=== PATIENT | female | born 1980 | race American Indian/Alaskan Native ===

== ENCOUNTER 2016-07-01 22:27 | Emergency (ER) | payer OTHER ==
--- NOTE | 2016-07-02 02:58 | Emergency Department Report ---
- General Chief complaint: Skin/Abscess/Foreign Body Stated complaint: ABSCESS Time Seen by Provider: 07/02/16 02:42 Source: patient, family Mode of arrival: Ambulatory Limitations: No Limitations - History of Present Illness Initial comments: Patient here reports that she noticed that she has skin abscess under her left arm after shaving. She reports pain 8 out of 10 with movement. Reports swelling and redness. Denies any fever or chills. MD complaint: abscess/boil Onset/Timin -: days(s) Tetanus Up to Date: yes Location: LUE (left axilla) Severity: severe Severity scale (0 -10): 8 Quality: aching, other (throbbing) Consistency: intermittent Improves with: immobilization, rest Worsens with: palpation, movement Associated symptoms: denies other symptoms Treatments Prior to Arrival: other (warm compresses) - Related Data Previous Rx's Medication Instructions Recorded Last Taken Type Ibuprofen [Motrin] 800 mg PO Q8H PRN #20 tablet 12/26/13 Unknown Rx traMADol [Ultram] 50 mg PO Q6HR PRN #10 tablet 12/26/13 Unknown Rx Acetaminophen/Codeine [Tylenol 1 tab PO Q6H PRN #12 tab 07/02/16 Unknown Rx /Codeine # 3 tab] Ibuprofen [Motrin] 600 mg PO Q8H PRN #15 tablet 07/02/16 Unknown Rx Sulfamethoxazole/Trimethoprim 1 each PO BID #20 tablet 07/02/16 Unknown Rx [Bactrim DS TAB] Allergies Allergy/AdvReac Type Severity Reaction Status Date / Time No Known Allergies Allergy Unverified 06/10/13 12:50 Abscess Boil HPI - HPI Chief Complaint: Skin/Abscess/Foreign Body Stated Complaint: ABSCESS Time Seen by Provider: 07/02/16 02:42 Home Medications: Previous Rx's Medication Instructions Recorded Last Taken Type Ibuprofen [Motrin] 800 mg PO Q8H PRN #20 tablet 12/26/13 Unknown Rx traMADol [Ultram] 50 mg PO Q6HR PRN #10 tablet 12/26/13 Unknown Rx Acetaminophen/Codeine [Tylenol 1 tab PO Q6H PRN #12 tab 07/02/16 Unknown Rx /Codeine # 3 tab] Ibuprofen [Motrin] 600 mg PO Q8H PRN #15 tablet 07/02/16 Unknown Rx Sulfamethoxazole/Trimethoprim 1 each PO BID #20 tablet 07/02/16 Unknown Rx [Bactrim DS TAB] Allergies/Adverse Reactions: Allergies Allergy/AdvReac Type Severity Reaction Status Date / Time No Known Allergies Allergy Unverified 06/10/13 12:50 ED Review of Systems ROS: Stated complaint: ABSCESS Other details as noted in HPI Comment: All other systems reviewed and negative Constitutional: denies: chills, fever ENT: denies: throat pain Respiratory: no symptoms reported Cardiovascular: denies: chest pain, palpitations, edema, syncope Gastrointestinal: denies: abdominal pain, nausea, vomiting Skin: other (abscess left axilla). denies: rash Neurological: denies: headache, weakness, numbness, paresthesias, confusion, abnormal gait, vertigo ED Past Medical Hx - Past Medical History Previous Medical History?: Yes Additional medical history: Abscess - Surgical History Past Surgical History?: Yes Additional Surgical History: tubal ligation - Family History Family history: no significant - Social History Smoking Status: Current Every Day Smoker Substance Use Type: None - Medications Home Medications: Home Medications Medication Instructions Recorded Confirmed Last Taken Type Ibuprofen [Motrin] 800 mg PO Q8H PRN #20 tablet 12/26/13 Unknown Rx traMADol [Ultram] 50 mg PO Q6HR PRN #10 tablet 12/26/13 Unknown Rx Acetaminophen/Codeine [Tylenol 1 tab PO Q6H PRN #12 tab 07/02/16 Unknown Rx /Codeine # 3 tab] Ibuprofen [Motrin] 600 mg PO Q8H PRN #15 tablet 07/02/16 Unknown Rx Sulfamethoxazole/Trimethoprim 1 each PO BID #20 tablet 07/02/16 Unknown Rx [Bactrim DS TAB] ED Physical Exam - General Limitations: No Limitations General appearance: alert, in no apparent distress - Head Head exam: Present: atraumatic, normocephalic, normal inspection - Eye Eye exam: Present: normal appearance, PERRL. Absent: periorbital swelling, periorbital tenderness Pupils: Present: normal accommodation - ENT ENT exam: Present: normal exam, normal orophraynx, mucous membranes moist, TM's normal bilaterally, normal external ear exam - Neck Neck exam: Present: normal inspection, full ROM. Absent: tenderness, meningismus, lymphadenopathy - Respiratory Respiratory exam: Present: normal lung sounds bilaterally. Absent: respiratory distress, chest wall tenderness - Cardiovascular Cardiovascular Exam: Present: regular rate, normal rhythm, normal heart sounds - GI/Abdominal GI/Abdominal exam: Present: soft, normal bowel sounds. Absent: distended, tenderness, guarding, rebound, rigid - Extremities Exam Extremities exam: Present: normal inspection, full ROM, normal capillary refill. Absent: tenderness, pedal edema, joint swelling, calf tenderness - Back Exam Back exam: Present: normal inspection, full ROM - Neurological Exam Neurological exam: Present: alert, oriented X3, normal gait, reflexes normal. Absent: motor sensory deficit - Psychiatric Psychiatric exam: Present: normal affect, normal mood - Skin Skin exam: Present: warm, dry, other (abscess left axilla) - Expanded Skin Exam Expanded Description of rash: Present: size ( 3 cm x 3 cm), tenderness, erythematous, swelling, fluctuant, indurated. Absent: discharge ED Course Vital Signs 07/01/16 07/02/16 22:35 04:35 Temperature 98.5 F Pulse Rate 90 71 Respiratory 18 16 Rate Blood Pressure 128/57 Blood Pressure 113/69 [Right] O2 Sat by Pulse 98 97 Oximetry - Reevaluation(s) Reevaluation #1: 07/02/16 04:17 given Percocet 5/325 2 tablets in emergency room prior to incision and drainage. - I & D Left Type of Procedure: Complex Site: left axilla Blade Size: Marcaine 10 cc I & D Procedure: betadine prep, sterile drapes applied, sterile dressing applied , gauze wick placed ED Medical Decision Making - Medical Decision Making ED course: Patient with abscess and cellulitis to left axilla. Encounter for incision and drainage. See procedure note for details. Patient was given Percocet 5/325 2 tablets in emergency room preprocedure. She was understanding of discharge instructions and treatment plan. And to return to emergency room in 4 days to have reevaluation of abscess and removal of packing. She was discharged home with prescription for Bactrim DS and Tylenol 3. Critical care attestation.: If time is entered above; I have spent that time in minutes in the direct care of this critically ill patient, excluding procedure time. ED Disposition Clinical Impression: Cellulitis and abscess of other specified site, Encounter for incision and drainage procedure Disposition: DISCHARGED TO HOME OR SELFCARE Is pt being admited?: No Does the pt Need Aspirin: No Condition: Stable Instructions: Cellulitis (ED), Abscess Incision and Drainage (ED) Additional Instructions: return to emergency room in 4 days to have packing removed from abscess. Please follow up with her primary care physician if he did not have one that he can follow-up with [facility]. Take antibiotic as prescribed Tylenol 3 will cause her to be drowsy marisela cannot drive or operate heavy machinery while taking this medication Warm compresses decided to do 4 times a day. Prescriptions: Acetaminophen/Codeine [Tylenol /Codeine # 3 tab] 1 tab PO Q6H PRN #12 tab PRN Reason: Pain Ibuprofen [Motrin] 600 mg PO Q8H PRN #15 tablet PRN Reason: Pain Sulfamethoxazole/Trimethoprim [Bactrim DS TAB] 1 each PO BID #20 tablet Referrals: PRIMARY CARE,MD [Primary Care Provider] - 3-5 Days [facility] [Outside] - 3-5 Days Forms: Accompanied Note
[2016-07-02] MEDS: PERCOCET 5/325 PO ONE (03:08)
[2016-07-02] MEDS: MARCAINE 0.5% INFILTRATI ONE (03:09)
[2016-07-02 04:35] VITALS: BP 113/69
== END 2016-07-02 04:35 | disposition home or self-care (01) ==
LOC: ED 22:27
DX: L02.412 Cutaneous abscess of left axilla (principal); L03.112 Cellulitis of left axilla; F17.200 Nicotine dependence, unspecified, uncomplicated
CPT/HCPCS: 99282

== ENCOUNTER 2016-07-07 07:27 | Emergency (ER) | payer SELFPAY ==
[2016-07-07 07:46] VITALS: BP 122/73
--- NOTE | 2016-07-07 08:35 | Emergency Department Report ---
ED Recheck HPI - General Chief Complaint: Recheck/Abnormal Lab/Rx Stated Complaint: PACKING REMOVED Time Seen by Provider: 07/07/16 08:12 Source: patient Mode of arrival: Ambulatory Limitations: No Limitations - History of Present Illness Initial Comments: patient is here for packing removal Complaint: wound re-check Initial Visit For: abscess Returns Today for: wound recheck Symptoms Since Prior Visit: improved Context: planned re-check Associated Symptoms: other (draining from wound) Treatments Prior to Arrival: Given Antibiotics on (patient states that she has not been taking Abx because it is "nasty") - Related Data Previous Rx's Medication Instructions Recorded Last Taken Type Ibuprofen [Motrin 800 MG tab] 800 mg PO Q8H PRN #20 tablet 12/26/13 Unknown Rx Ibuprofen [Motrin 600 MG tab] 600 mg PO Q8H PRN #15 tablet 07/02/16 Unknown Rx Sulfamethoxazole/Trimethoprim 1 each PO BID #20 tablet 07/02/16 Unknown Rx [Bactrim DS TAB] Cephalexin [Keflex] 500 mg PO TID #30 capsule 07/07/16 Unknown Rx traMADol [Ultram] 50 mg PO Q4HR PRN #30 tablet 07/07/16 Unknown Rx Allergies Allergy/AdvReac Type Severity Reaction Status Date / Time No Known Allergies Allergy Unverified 06/10/13 12:50 ED Review of Systems ROS: Stated complaint: PACKING REMOVED Other details as noted in HPI Constitutional: denies: chills, fever Eyes: denies: eye pain, eye discharge, vision change ENT: denies: ear pain, throat pain Respiratory: denies: cough, shortness of breath, wheezing Cardiovascular: denies: chest pain, palpitations Endocrine: no symptoms reported Gastrointestinal: denies: abdominal pain, nausea, diarrhea Genitourinary: denies: urgency, dysuria, discharge Musculoskeletal: denies: back pain, joint swelling, arthralgia Skin: lesions (abscess left axilla). denies: rash Neurological: denies: headache, weakness, paresthesias Psychiatric: denies: anxiety, depression Hematological/Lymphatic: denies: easy bleeding, easy bruising ED Past Medical Hx - Past Medical History Previous Medical History?: Yes Additional medical history: Abscess - Surgical History Past Surgical History?: Yes Additional Surgical History: tubal ligation - Social History Smoking Status: Current Every Day Smoker Substance Use Type: None - Medications Home Medications: Home Medications Medication Instructions Recorded Confirmed Last Taken Type Ibuprofen [Motrin 800 MG tab] 800 mg PO Q8H PRN #20 tablet 12/26/13 Unknown Rx Ibuprofen [Motrin 600 MG tab] 600 mg PO Q8H PRN #15 tablet 07/02/16 Unknown Rx Sulfamethoxazole/Trimethoprim 1 each PO BID #20 tablet 07/02/16 Unknown Rx [Bactrim DS TAB] Cephalexin [Keflex] 500 mg PO TID #30 capsule 07/07/16 Unknown Rx traMADol [Ultram] 50 mg PO Q4HR PRN #30 tablet 07/07/16 Unknown Rx ED Physical Exam - General Limitations: No Limitations General appearance: alert, in no apparent distress - Head Head exam: Present: atraumatic, normocephalic - Eye Eye exam: Present: normal appearance - ENT ENT exam: Present: mucous membranes moist - Neck Neck exam: Present: normal inspection - Respiratory Respiratory exam: Present: normal lung sounds bilaterally. Absent: respiratory distress - Cardiovascular Cardiovascular Exam: Present: regular rate, normal rhythm. Absent: systolic murmur, diastolic murmur, rubs, gallop - GI/Abdominal GI/Abdominal exam: Present: soft, normal bowel sounds - Extremities Exam Extremities exam: Present: normal inspection - Back Exam Back exam: Present: normal inspection - Neurological Exam Neurological exam: Present: alert, oriented X3 - Psychiatric Psychiatric exam: Present: normal affect, normal mood - Skin Skin exam: Present: warm, dry, normal color, other (abscess left axilla with intack packing). Absent: rash ED Course Vital Signs 07/07/16 07:42 Temperature 98.3 F Pulse Rate 85 Respiratory 18 Rate Blood Pressure 122/73 O2 Sat by Pulse 99 Oximetry ED Recheck MDM - Differential Diagnosis Wound Recheck - Medical Decision Making packing removed without difficulty in ER. Bandage applied. Wound looking good. I will start new Abx for patient. Critical care attestation.: If time is entered above; I have spent that time in minutes in the direct care of this critically ill patient, excluding procedure time. ED Disposition Clinical Impression: Wound check, abscess Disposition: DISCHARGED TO HOME OR SELFCARE Is pt being admited?: No Does the pt Need Aspirin: No Condition: Good Instructions: Abscess (ED), Abscess Incision and Drainage (ED) Prescriptions: Cephalexin [Keflex] 500 mg PO TID #30 capsule traMADol [Ultram] 50 mg PO Q4HR PRN #30 tablet PRN Reason: Pain Referrals: PRIMARY CARE,MD [Primary Care Provider] - 3-5 Days Time of Disposition: 08:39
== END 2016-07-07 08:47 | disposition home or self-care (01) ==
LOC: ED 07:27
DX: Z48.817 Encounter for surgical aftercare following surgery on the skin and subcutaneous tissue (principal); F17.200 Nicotine dependence, unspecified, uncomplicated
CPT/HCPCS: 99282

== ENCOUNTER 2019-07-26 16:40 | Emergency (ER) | payer SELFPAY ==
[2019-07-26] MEDS ORDERED: IBUPROFEN 600 MG TAB PO ONE (16:49)
[2019-07-26] MEDS ORDERED: LIDOCAINE VISCOUS 2% 15 ML ORAL LIQD PO ONE (19:32)
[2019-07-26] MEDS ORDERED: dexAMETHasone 20 MG/5 ML VIAL IM ONE (19:32)
--- NOTE | 2019-07-26 19:50 | Emergency Department Report ---
ED General Adult HPI - General Chief complaint: Sore Throat Stated complaint: SORE THROAT, CHILLS, BACK PAIN Source: patient Mode of arrival: Ambulatory Limitations: No Limitations - History of Present Illness Initial comments: Patient is a 39-year-old -[place] female with no past medical history presents to the ED with complaint of acute onset persistent severe sore throat, intermittent fever and chills, diffuse body aches and pains, severe low back pain for the last 2 days. Patient states that the sore throat got worse in the last 12 hours and said that she has not been able to swallow anything because of severe sore throat. Patient denies dizziness, syncope, nausea, vomiting, cough, nasal and sinus congestion, chest pain, shortness of breath, abdominal pain, diarrhea, dysuria, urinary frequency and urgency, change in vision, vaginal discharge or vaginal bleeding. MD Complaint: Severe sore throat; Dysphagia; Diffuse body aches, low back pain; fever -: Sudden, days(s) (2) Location: mouth Radiation: non-radiation Severity scale (0 -10): 8 Quality: aching, sharp Consistency: constant Improves with: none Worsens with: none Associated Symptoms: denies other symptoms, fever/chills, headaches, loss of appetite, malaise. denies: confusion, chest pain, diaphoresis, nausea/vomiting, rash, seizure, shortness of breath, syncope, weakness, other Treatments Prior to Arrival: NSAID - Related Data Previous Rx's Medication Instructions Recorded Last Taken Type Ibuprofen [Motrin 800 MG tab] 800 mg PO Q8H PRN #20 tablet 12/26/13 Unknown Rx Sulfamethoxazole/Trimethoprim 1 each PO BID #20 tablet 07/02/16 Unknown Rx [Bactrim DS TAB] Cephalexin [Keflex] 500 mg PO TID #30 capsule 07/07/16 Unknown Rx traMADoL [Ultram] 50 mg PO Q4HR PRN #30 tablet 07/07/16 Unknown Rx Azithromycin 1,000 mg PO ONCE #2 tablet 07/26/19 Unknown Rx Ibuprofen [Motrin 600 MG tab] 600 mg PO Q8H PRN #30 tablet 07/26/19 Unknown Rx Lidocaine Viscous 2% 10 ml PO Q6H PRN #120 ml 07/26/19 Unknown Rx cephALEXin [Keflex] 500 mg PO Q8HR #30 cap 07/26/19 Unknown Rx Allergies Allergy/AdvReac Type Severity Reaction Status Date / Time No Known Allergies Allergy Unverified 06/10/13 12:50 ED Review of Systems ROS: Stated complaint: SORE THROAT, CHILLS, BACK PAIN Other details as noted in HPI Constitutional: chills, fever, malaise, weakness Eyes: denies: eye pain, eye discharge, vision change ENT: throat pain, other (dysphagia). denies: ear pain Respiratory: denies: cough, shortness of breath, wheezing Cardiovascular: denies: chest pain, palpitations Endocrine: no symptoms reported Gastrointestinal: denies: abdominal pain, nausea, diarrhea Genitourinary: denies: urgency, dysuria, discharge Musculoskeletal: back pain, arthralgia, myalgia. denies: joint swelling Skin: denies: rash, lesions Neurological: headache. denies: weakness, paresthesias Psychiatric: denies: anxiety, depression Hematological/Lymphatic: denies: easy bleeding, easy bruising ED Past Medical Hx - Past Medical History Previous Medical History?: No Additional medical history: Abscess - Surgical History Past Surgical History?: No Additional Surgical History: tubal ligation - Social History Smoking Status: Current Every Day Smoker Substance Use Type: None - Medications Home Medications: Home Medications Medication Instructions Recorded Confirmed Last Taken Type Ibuprofen [Motrin 800 MG tab] 800 mg PO Q8H PRN #20 tablet 12/26/13 Unknown Rx Sulfamethoxazole/Trimethoprim 1 each PO BID #20 tablet 07/02/16 Unknown Rx [Bactrim DS TAB] Cephalexin [Keflex] 500 mg PO TID #30 capsule 07/07/16 Unknown Rx traMADoL [Ultram] 50 mg PO Q4HR PRN #30 tablet 07/07/16 Unknown Rx Azithromycin 1,000 mg PO ONCE #2 tablet 07/26/19 Unknown Rx Ibuprofen [Motrin 600 MG tab] 600 mg PO Q8H PRN #30 tablet 07/26/19 Unknown Rx Lidocaine Viscous 2% 10 ml PO Q6H PRN #120 ml 07/26/19 Unknown Rx cephALEXin [Keflex] 500 mg PO Q8HR #30 cap 07/26/19 Unknown Rx ED Physical Exam - General Limitations: No Limitations General appearance: alert, in no apparent distress - Head Head exam: Present: atraumatic, normocephalic, normal inspection - Eye Eye exam: Present: normal appearance, PERRL, EOMI Pupils: Present: normal accommodation - ENT ENT exam: Present: normal exam, mucous membranes moist, TM's normal bilaterally, normal external ear exam, other (Severely erythematous oropharynx and tonsils with thick white exudates; no tonsillar swelling, and uvula is midline) - Neck Neck exam: Present: normal inspection, full ROM, lymphadenopathy (Bilateral anterior cervical lymphadenopathy). Absent: tenderness - Respiratory Respiratory exam: Present: normal lung sounds bilaterally. Absent: respiratory distress, wheezes, rales, rhonchi, chest wall tenderness, accessory muscle use, decreased breath sounds - Cardiovascular Cardiovascular Exam: Present: normal rhythm, tachycardia, normal heart sounds. Absent: systolic murmur, diastolic murmur, rubs, gallop - GI/Abdominal GI/Abdominal exam: Present: soft, normal bowel sounds. Absent: tenderness, guarding, hyperactive bowel sounds - Extremities Exam Extremities exam: Present: normal inspection, full ROM, normal capillary refill - Back Exam Back exam: Present: normal inspection, full ROM. Absent: tenderness, CVA tenderness (R), CVA tenderness (L), muscle spasm, paraspinal tenderness, vertebral tenderness - Neurological Exam Neurological exam: Present: alert, oriented X3, CN II-XII intact, normal gait, reflexes normal - Psychiatric Psychiatric exam: Present: normal affect, normal mood - Skin Skin exam: Present: warm, dry, intact, normal color. Absent: rash ED Course Vital Signs 07/26/19 07/26/19 07/26/19 16:46 18:04 21:30 Temperature 102.0 F H 101.4 F H 98.2 F Pulse Rate 103 H 91 H Respiratory 18 16 Rate Blood Pressure 145/77 127/77 O2 Sat by Pulse 100 94 Oximetry ED Medical Decision Making - Medical Decision Making This is a 39-year-old -[place] female with no past medical history presents to the ED with complaint of acute onset persistent severe sore throat, intermittent fever and chills, diffuse body aches and pains, severe low back pain for the last 2 days. Patient states that the sore throat got worse in the last 12 hours and said that she has not been able to swallow anything because of severe sore throat. In the ED, patient is alert and oriented x3 and is not in distress, febrile and tachycardic but in no acute distress. Patient was treated for pain and fever, and rapid strep test was negative. Urinalysis shows significant urinary tract infection. Patient admitted that she has unprotected oral sex but practices safe vaginal sex using protection. The differential diag nosis given the fact that the rapid strep test was negative includes chlamydia trachomatis causing the pharyngitis, streptococcal pharyngitis given the fact that the rapid strep test though specific but not sensitive most of the time. On reevaluation, patient's fever and tachycardia resolved and patient was discharged home on medications. Patient was advised to follow-up with her primary care physician in 5 to 7 days for reevaluation or return to the ED immediately if symptoms get worse. - Differential Diagnosis Strep pharyngitis; Tonsillitis; Chlamydia pharyngitis; UTI; Muscle spasm Critical care attestation.: If time is entered above; I have spent that time in minutes in the direct care of this critically ill patient, excluding procedure time. ED Disposition Clinical Impression: Fever and chills, Acute bacterial pharyngitis, Acute urinary tract infection Disposition: TO HOME OR SELFCARE Is pt being admited?: No Does the pt Need Aspirin: No Condition: Stable Instructions: Urinary Tract Infection in Women (ED), Pharyngitis (ED), Fever in Adults (ED) Additional Instructions: Take medications with food, drink plenty of fluids and follow up with your Primary Care Physician as advised. Return to the ED immediately if symptoms get worse. Prescriptions: Azithromycin 1,000 mg PO ONCE #2 tablet cephALEXin [Keflex] 500 mg PO Q8HR #30 cap Lidocaine Viscous 2% 10 ml PO Q6H PRN #120 ml PRN Reason: Pain , Severe (7-10) Ibuprofen [Motrin 600 MG tab] 600 mg PO Q8H PRN #30 tablet PRN Reason: Pain Referrals: [facility] [Provider Group] - 7-10 days Time of Disposition: 21:16 Print Language: NIGERIEN
[2019-07-26 19:51] LABS: Bacteria,Urine 1+ /HPF (Negative); Bilirubin,Urine NEG (Negative); Blood,Urine LG (Negative); Color,Urine Amber (Yellow); HCG Qualitative,Urine Negative (Negative); Mucus,Urine 3+ /HPF
[2019-07-26] MEDS ORDERED: ACETAMINOPHEN 500 MG TAB PO ONE (19:51)
[2019-07-26] MEDS ORDERED: LIDOCAINE-MPF (1%) 10 MG/1 ML VIAL 5 ML INFILTRATI ONE (20:14)
[2019-07-27 13:32] VITALS: BP 127/77
== END 2019-07-26 22:01 | disposition home or self-care (01) ==
LOC: ED 16:40
DX: R50.9 Fever, unspecified (principal); J02.8 Acute pharyngitis due to other specified organisms; B96.89 Other specified bacterial agents as the cause of diseases classified elsewhere; N39.0 Urinary tract infection, site not specified; F17.200 Nicotine dependence, unspecified, uncomplicated; Z98.51 Tubal ligation status; Z79.899 Other long term (current) drug therapy
CPT/HCPCS: 81001; 81025; 87086; 87116; 87430; 99283; J0696; J1100